=== PATIENT | female | born 1990 | race American Indian/Alaskan Native ===

== ENCOUNTER 2017-06-02 17:50 | Emergency (ER) | payer OTHER ==
[2017-06-02 18:48] VITALS: BP 145/85
[2017-06-02 19:28] LABS: Basophils % (Auto) 0.4 % (0.0-1.8); Eosinophils % (Auto) 1.7 % (0.0-4.3); Hemoglobin 10.5 gm/dl (10.1-14.3); Mean Corpuscular HGB Conc 30 % (30-34); Mean Corpuscular Volume 74 fl (79-97); Platelet Count 205 K/mm3 (140-440); Red Blood Count 4.75 M/mm3 (3.65-5.03); White Blood Count 5.1 K/mm3 (4.5-11.0)
[2017-06-02 19:29] LABS: Hematocrit 34.9 % (30.3-42.9); Mean Corpuscular Hemoglobin 22 pg (28-32); Red Cell Distribution Width 20.8 % (13.2-15.2)
--- NOTE | 2017-06-02 19:34 | Emergency Department Report ---
ED Chest Pain HPI - General Chief Complaint: Chest Pain Stated Complaint: CHEST PAIN Time Seen by Provider: 06/02/17 18:51 Source: EMS Mode of arrival: Ambulatory Limitations: No Limitations - History of Present Illness Initial Comments: This is a 27 year-old female with a past medical history significant for previous aortic dissection and aortic valve repair with mechanical valve and Marfan syndrome who presents to the emergency department from [facility] with complaint of left-sided chest pain that's been going on since earlier today. It is associated with some shortness of breath, but she denies any nausea, vomiting, fever, back pain or diaphoresis. She is on Coumadin for the aortic valve but says that she has not gone in since last Wednesday secondary to some family issues and then incarceration. She says that when her INR gets low she gets chest pain. She was given a 7.5 mg warfarin pill at the [facility] but says that she is supposed take 15 mg daily as she has a tough time getting to a therapeutic level. She follows with the [place] [facility] for her Coumadin as well as for her primary care needs. No recent travel. She denies any tobacco or illicit drug use or abuse. Severity scale (0 -10): 0 - Related Data Previous Rx's Medication Instructions Recorded Last Taken Type Metoprolol [Lopressor TAB] 25 mg PO BID 30 Days 03/08/15 Unknown Rx Warfarin Sodium [Coumadin] 10 mg PO DAILY 30 Days 03/08/15 Unknown Rx traMADol [Ultram 50 MG tab] 50 - 100 mg PO Q8HR PRN #20 tablet 03/08/15 Unknown Rx Allergies Allergy/AdvReac Type Severity Reaction Status Date / Time No Known Allergies Allergy Verified 01/13/14 00:21 Heart Score - HEART Score History: Slightly suspicious EKG: Non-specific Age: < 45 Risk factors: 1-2 risk factors Troponin: < normal limit HEART Score: 2 - Critical Actions Critical Actions: 0-3 pts:0.9-1.7%risk of adverse cardiac event.Candidate for discharge ED Review of Systems ROS: Stated complaint: CHEST PAIN Other details as noted in HPI Comment: All other systems reviewed and negative Constitutional: denies: chills, fever Eyes: denies: eye pain, eye discharge, vision change ENT: denies: ear pain, throat pain Respiratory: shortness of breath. denies: cough, wheezing Cardiovascular: chest pain. denies: edema Gastrointestinal: denies: abdominal pain, nausea, diarrhea Genitourinary: denies: urgency, dysuria, discharge Musculoskeletal: denies: joint swelling, arthralgia Skin: denies: rash, lesions Neurological: denies: headache, weakness, paresthesias ED Past Medical Hx - Past Medical History Previous Medical History?: No Hx Hypertension: Yes Hx CVA: No Hx Heart Attack/AMI: No Hx Congestive Heart Failure: No Hx Diabetes: No Hx Deep Vein Thrombosis: No Hx Pulmonary Embolism: No Hx GERD: No Hx Liver Disease: No Hx Renal Disease: No Hx of Cancer: No Hx Sickle Cell Disease: No Hx Arthritis: No Hx Headaches / Migraines: No Hx Seizures: No Hx Kidney Stones: No Hx Psychiatric Treatment: No Hx Asthma: No Hx COPD: No Hx Tuberculosis: No Hx Dementia: No Hx HIV: No Additional medical history: marfans syndrome. Tetanus up-to-date - Surgical History Past Surgical History?: No Hx Coronary Stent: No Hx Open Heart Surgery: No Hx Pacemaker: No Hx Internal Defibrillator: No Hx Cholecystectomy: No Hx Appendectomy: No Hx Breast Surgery: No Additional Surgical History: aortic valve replacement - Social History Smoking Status: Former Smoker Substance Use Type: None - Medications Home Medications: Home Medications Medication Instructions Recorded Confirmed Last Taken Type Metoprolol [Lopressor TAB] 25 mg PO BID 30 Days 03/08/15 Unknown Rx Warfarin Sodium [Coumadin] 10 mg PO DAILY 30 Days 03/08/15 Unknown Rx traMADol [Ultram 50 MG tab] 50 - 100 mg PO Q8HR PRN #20 tablet 03/08/15 Unknown Rx ED Physical Exam - General Limitations: No Limitations - Other Other exam information: GENERAL: The patient is well-developed well-nourished. HENT: Normocephalic. Atraumatic. Patient has moist mucous membranes. EYES: Extraocular motions are intact. Pupils equal reactive to light bilaterally. NECK: Supple. Trachea is midline. CHEST/LUNGS: Clear to auscultation. There is no respiratory distress noted. HEART/CARDIOVASCULAR: Regular. There is no tachycardia. There was no obvious murmur heard but S2 is profound. ABDOMEN: Abdomen is soft, nontender. Patient has normal bowel sounds. There is no abdominal distention. SKIN: Skin is warm and dry. NEURO: The patient is awake, alert, and oriented. The patient is cooperative. The patient has no focal neurologic deficits. The patient has normal speech. MUSCULOSKELETAL: There is no tenderness or deformity. There is no limitation range of motion. There is no evidence of acute injury. ED Course Vital Signs 06/02/17 06/02/17 18:40 20:12 Temperature 98.3 F Pulse Rate 78 89 Respiratory 18 Rate Blood Pressure 145/85 Blood Pressure 145/85 [Right] O2 Sat by Pulse 100 Oximetry MATTIE score - Mattie Score Age > 65: (0) No Aspirin use within the Past 7 Days: (0) No 3 or more CAD Risk Factors: (0) No 2 or more Angina events in past 24 hrs: (1) Yes Known CAD with more than 50% Stenosis: (0) No Elevated Cardiac Markers: (0) No ST Deviation Greater than 0.5mm: (0) No MATTIE Score: 1 ED Medical Decision Making - Lab Data Result diagrams: 06/02/17 19:04 06/02/17 19:04 - EKG Data -: EKG Interpreted by Me EKG shows normal: sinus rhythm, axis (LAD), intervals, QRS complexes (RSR' in V1 and V2, LVH), ST-T waves (Nonspecific ST-T) Rate: normal - EKG Data When compared to previous EKG there are: previous EKG unavailable Interpretation: other (RSR' in V1 and V2, LVH, Nonspecific ST-T) - Radiology Data Radiology results: image reviewed interpreted by me: Chest x-ray does not show any acute process. There are no pleural effusions, obvious pneumonia and there is no pneumothorax. - Medical Decision Making 27-year-old female with a history of aortic dissection and aortic valve replacement presents from [facility] with chest pain. Her vital signs were stable throughout her ED course thus far. EKG did not show any signs of ST elevation HI. First troponin negative. Chest x-ray does not show any widened mediastinum or any other acute process. She had an elevated d-dimer of about 550 and the plan was going to be to do a CT angiography of the chest. She has an INR of 1.6 which is subtherapeutic for her aortic valve and the reason she thinks she has the chest pain. However all of a sudden the patient decided that she no longer wanted evaluation in the emergency department and wanted to leave. The patient is not a 1013 and is of sound mind and therefore has the right to be leave AMA back to [facility]. She understands that there is a risk of clots or stenosis to the aortic valve secondary to the subtherapeutic INR, risk of PE, HI, worsening chest pain, dyspnea, disability, coma and . Despite this she still wants to leave AGAINST MEDICAL ADVICE and has signed the AMA form. - Differential Diagnosis PE, HI, aortic dissection, aortic valve stenosis, costochondritis, GERD Critical Care Time: No Critical care attestation.: If time is entered above; I have spent that time in minutes in the direct care of this critically ill patient, excluding procedure time. ED Disposition Clinical Impression: Subtherapeutic international normalized ratio (INR), History of aortic valve repair, History of aortic dissection Chest pain Qualifiers: Chest pain type: unspecified Qualified Code(s): R07.9 - Chest pain, unspecified Disposition: -07 LEFT AGAINST MED ADVICE Is pt being admited?: No Condition: Stable Instructions: Chest Pain (ED) Referrals: PRIMARY CARE, [Primary Care Provider] - 3-5 Days Forms: AMA Form Time of Disposition: 21:09
[2017-06-02 19:36] LABS: INR 1.6 (0.87-1.13)
[2017-06-02 19:48] LABS: Alanine Aminotransferase 29 units/L (7-56); Albumin 4.2 g/dL (3.9-5); Albumin/Globulin Ratio 1.4 %; Alkaline Phosphatase 71 units/L (35-129); Anion Gap 18 mmol/L; BUN/Creatinine Ratio 14; Blood Urea Nitrogen 10 mg/dL (7-17); Calcium 9.2 mg/dL (8.4-10.2); Carbon Dioxide 26 mmol/L (22-30); Chloride 100.4 mmol/L (98-107); Glucose 99 mg/dL (65-100); Potassium 3.9 mmol/L (3.6-5.0); Sodium 140 mmol/L (137-145); Total Protein 7.3 g/dL (6.3-8.2)
[2017-06-02 20:15] LABS: Urine Drugs of Abuse Note Disclamer
[2017-06-02 20:30] LABS: Bilirubin,Urine NEG (Negative); Blood,Urine NEG (Negative); Ketones,Urine NEG (Negative); Leukocyte Esterase,Urine TR (Negative); Mucus,Urine FEW /HPF; Nitrite,Urine NEG (Negative); Protein,Urine <15 mg/dL mg/dL (Negative); Urobilinogen,Urine < 2.0 mg/dL (<2.0)
[2017-06-02] MEDS ORDERED: MORPHINE IV ONE (20:38)
--- NOTE | 2017-06-03 07:43 | XRay Report ---
Single view chest: History: Chest pain. Findings Cardiomegaly. Scoliosis dorsal spine with convexity to right. No consolidation, pneumothorax or pleural effusion. Impression: No acute cardiopulmonary findings.
== END 2017-06-02 20:50 | disposition left against medical advice (07) ==
LOC: ED 17:50
DX: R07.89 Other chest pain (principal); R06.02 Shortness of breath; R79.1 Abnormal coagulation profile; I10 Essential (primary) hypertension; Z87.891 Personal history of nicotine dependence
CPT/HCPCS: 36415; 71010; 80053; 80307; 81001; 84484; 84703; 85025; 85379; 85610; 93005; 93010; 99285

== ENCOUNTER 2017-08-06 09:14 | Day surgery (SDC) | payer MEDICAID, OTHER ==
--- NOTE | 2017-08-04 10:03 | Anesthesia Consultation ---
Anesthesia Consult and Med Hx Date of service: 08/04/17 - Airway Anesthetic Teeth Evaluation: Chipped (upper front) ROM Head & Neck: Adequate Mental/Hyoid Distance: Adequate Mallampati Class: Class II Intubation Access Assessment: Probably Good - Pre-Operative Health Status ASA Pre-Surgery Classification: ASA2 - Pulmonary Hx Smoking: Yes (QUIT 2012) Hx Asthma: No COPD: No - Cardiovascular System Hx Hypertension: Yes (takes metoprolol irregularly) Hx Heart Attack/AMI: No Hx Pacemaker: No Hx Internal Defibrillator: No Hx Valvular Heart Disease: Yes (aortic valve replacement 2012, on coumadin) Hx Heart Murmur: Yes Hx Peripheral Vascular Disease: Yes (s/p thrombectomy from r brachial artery 2014) - Central Nervous System Hx Seizures: No - Endocrine Hx Renal Disease: No Hx Liver Disease: No - Hematic Hx Anemia: Yes Hx Sickle Cell Disease: No - Other Systems Hx Alcohol Use: Yes (SOCIALLY) Hx Cancer: No - Additional Comments Anesthesia Medical History Comments: patient takes coumadin on irregular basis
[2017-08-04 10:21] LABS: Basophils % (Auto) 0.2 % (0.0-1.8); Eosinophils % (Auto) 3.1 % (0.0-4.3); Hematocrit 34.9 % (30.3-42.9); Hemoglobin 10.7 gm/dl (10.1-14.3); Mean Corpuscular HGB Conc 31 % (30-34); Mean Corpuscular Volume 75 fl (79-97); Platelet Count 168 K/mm3 (140-440); Red Blood Count 4.64 M/mm3 (3.65-5.03); White Blood Count 4.5 K/mm3 (4.5-11.0)
[2017-08-04 10:23] LABS: Mean Corpuscular Hemoglobin 23 pg (28-32); Red Cell Distribution Width 20.6 % (13.2-15.2)
[2017-08-04 10:52] LABS: INR 1.77 (0.87-1.13)
[2017-08-04 10:53] LABS: Partial Thromboplastin Time 42.9 Sec. (24.2-36.6)
[~2017-08-06 09:14] MED LIST: LACTATED RINGERS 1,000 ML IV SCH; PEPCID IV NR; VERSED IV NR
--- NOTE | 2017-08-06 10:08 | Short Stay Summary ---
Short Stay Documentation Date of service: 08/06/17 Narrative H&P: C/O: Desires permanent sterilization 27-year-old presents for permanent sterilization - History Past Medical History: heart failure, other (history of aortic valve disease status post valve replacement) Past Surgical History: valve replacement (Aortic), Social history: single, full code, no smoking, no alcohol abuse, no prescription drug abuse, no IV drug use - Allergies and Medications Current Medications: Allergies No Known Allergies Allergy (Verified 01/13/14 00:21) Home Medications Medication Instructions Recorded Confirmed Last Taken Type Metoprolol [Lopressor TAB] 25 mg PO BID 30 Days tablet 03/08/15 07/29/17 Unknown Rx Warfarin Sodium [Coumadin] 10 mg PO DAILY 30 Days tablet 03/08/15 08/04/1711/13 20:00 Rx Active Medications Famotidine (Pepcid) 20 mg IV PREOP NR Stop: 08/06/17 21:00 Lactated Ringer's (Lactated Ringers) 1,000 mls @ 100 mls/hr IV DIRECT HARRIS Midazolam HCl (Versed) 2 mg IV PREOP NR Stop: 08/06/17 23:59 - Physical exam General appearance: no acute distress, well-nourished HEENT: Atraumatic, PERRLA Lungs: Clear to auscultation, Normal air movement Heart: Murmur Gastrointestinal: normal, normoactive bowel sounds, no tenderness, no distended , no masses, no guarding Extremities: no ischemia - Brief post op/procedure progress note Date of procedure: 08/06/17 Pre-op diagnosis: desires permanent sterilization Post-op diagnosis: same Procedure: Laparoscopic bilateral tubal ligation Anesthesia: GETA Findings: Normal uterus tubes and ovaries, omental adhesion to anterior abdominal wall Surgeon: ALOK DE ANDA Estimated blood loss: minimal Pathology: none Condition: stable - Hospital course Hospital course: Uncomplicated PACU course, she is discharged home in stable condition - Disposition Condition at discharge: Good Disposition: DC-01 TO HOME OR SELFCARE Short Stay Discharge Plan Activity: advance as tolerated, no driving until cleared by PCP (No driving on narcotics) Weight Bearing Status: Weight Bear as Tolerated Diet: regular Wound: open to air Follow up with: MISAEL CARVALHO MD [Primary Care Provider] - 7 Days ALOK DE ANDA MD [Staff Physician] - 10 Days Forms: [facility] Inst.
[2017-08-06 10:09] LABS: INR 1.68 (0.87-1.13)
[2017-08-06] MEDS ORDERED: DECADRON ONE (10:18)
[2017-08-06] MEDS ORDERED: DIPRIVAN 10 MG/ML IV ONE (10:18)
[2017-08-06] MEDS ORDERED: SUBLIMAZE ONE (10:18)
[2017-08-06] MEDS ORDERED: ZEMURON IV ONE (10:19)
[2017-08-06] MEDS ORDERED: ZOFRAN ONE (10:19)
[2017-08-06] MEDS ORDERED: XYLOCAINE MPF 2% ONE (10:19)
[2017-08-06] MEDS ORDERED: NEOSTIGMINE ONE (10:19)
[2017-08-06] MEDS ORDERED: ROBINUL ONE (10:19)
[2017-08-06] MEDS ORDERED: MARCAINE 0.25% INFILTRATI ONE ×2 (10:22→11:19)
[2017-08-06] MEDS ORDERED: ANCEF/STERILE WATER 2 GM/20 ML 2 GM/20 ML SYRINGE IV NR (11:00)
[2017-08-06] MEDS ORDERED: NACL 0.9% IR ONE (11:19)
[2017-08-06] MEDS ORDERED: DILAUDID ONE ×3 (11:33→12:46)
--- NOTE | 2017-08-06 11:45 | Operative Report ---
Operative Report Operative Report: DATE: 08/06/2017 PREOPERATIVE DIAGNOSIS: Permanent sterilization, status post aortic valve replacement POSTOP DIAGNOSIS: As above NAME OF PROCEDURE: Laparoscopic bilateral tubal with fulguration SURGEON: ALOK DE ANDA MD SKIP LOAD DRIVER: None ANESTHESIA: Gen. EBL: Minimal PATHOLOGY SPECIMEN: None URINE OUTPUT: 100mL prior to procedure FINDINGS: Normal uterus tubes and ovaries, omental adhesion to anterior abdominal wall DESCRIPTION OF PROCEDURE: After informed consent, patient was taken to the operating room where she was prepped and draped in a sterile fashion. She was placed in dorsolithotomy position then a carey catheter was placed without difficulty . Ellie speculum speculum was placed in the patient's vagina and single-tooth was used to grab the anterior lip. A Zurrba uterine manipulator was advanced into the patient's cervical os without difficulty. Attention was then turned to the patient's abdomen where 1/4 percent Marcaine was injected then a 1/2 cm incision was made in the umbilical fold. Towel clips were used to grab the umbilicus and this was elevated, varies needle was then advanced into the patient's abdomen carefully until 2 pops were felt. Water drop test confirmed intra-peritoneal placement then CO2 gas was used to obtain intra- abdominal insufflation. Patient's normal anatomy was visualized. Attention was then turned to the patient's suprapubic region where under direct visualization an attempt was made to pass a 5 mm trocar. This was unsuccessful due to stretchy skin and omental adhesions obscuring our view. Attention was then turned patient's left lower quadrant where a 5 mm incision was made 2 cm medial and superior to ant sup iliac spine. A 5 mm trocar was then advanced into the patient's abdomen without difficulty. Tubes were then grasped serially serially and cauterized with bipolar, 3 cm segment in each tube was fulgurised. All instruments were then withdrawn from the patient's abdomen under direct visualization and then the skin was closed in a subcuticular manner with 4-0 Monocryl. Instrument counts were correct 2; she tolerated the procedure well and was transferred the PACU in stable condition thank you
[2017-08-06] MEDS ORDERED: MOTRIN PO PRN (11:48)
[2017-08-06] MEDS ORDERED: TYLENOL PO PRN (11:48)
[2017-08-06] MEDS ORDERED: NORCO 5/325 PO PRN (11:48)
[2017-08-06] MEDS: DILAUDID IV PRN ×4 (12:21→12:50)
[2017-08-06] MEDS ORDERED: ZOFRAN IV PRN (12:25)
[2017-08-06] MEDS ORDERED: MARCAINE 0.5% 30 ML INFILTRATI ONE (12:33)
[2017-08-06] MEDS ORDERED: DILAUDID IV PRN (12:38)
[2017-08-06 13:35] VITALS: BP 129/82
== END 2017-08-06 14:15 | disposition home or self-care (01) ==
LOC: OR 09:14
PROVIDERS: ATTEND Obstetrics & Gynecology Gynecology
DX: Z30.2 Encounter for sterilization (principal); K66.0 Peritoneal adhesions (postprocedural) (postinfection); I10 Essential (primary) hypertension; I73.9 Peripheral vascular disease, unspecified; Q87.40 Marfan syndrome, unspecified; Z79.01 Long term (current) use of anticoagulants; Z95.2 Presence of prosthetic heart valve; Z98.890 Other specified postprocedural states
CPT/HCPCS: 36415; 58670; 84703; 85025; 85610; 85730; J0690; J1100; J1170; J2250; J2405; J2704; J2710; J3010; J7120